=== PATIENT | female | born 1975 | race Caucasian/White ===

== ENCOUNTER 2017-03-07 23:18 | Emergency (ER) | payer MEDICARE, OTHER ==
[2017-03-07] MEDS ORDERED: diphenhydrAMINE 50 MG/ML 1 ML VIAL IVP STA (23:38)
[2017-03-07] MEDS ORDERED: FAMOTIDINE 20 MG/2 ML VIAL IV STA (23:38)
[2017-03-07] MEDS ORDERED: methylPREDNISolone SOD SUCCI 125 MG/2 ML VIAL IV STA (23:38)
[2017-03-08 00:01] LABS: Appearance,Urine Cloudy (Clear); Bacteria,Urine Rare /hpf; Bilirubin,Urine Negative (Negative); Glucose,Urine (UA) Negative (Negative); Ketones,Urine Negative (Negative); Leukocyte Esterase,Urine Moderate (Negative); Mucus,Urine Rare /hpf; Nitrite,Urine Negative (Negative); Particle Count 2995; Protein,Urine Negative (Negative); RBC,Urine 1 /hpf (0-5); Specific Gravity,Urine 1.017 (1.001-1.035); Squamous Epithelial Cell,Urine 4 /hpf (0-4); UA Billing (MACRO vs. MICRO) MICRO; Urobilinogen,Urine <2.0 mg/dL (<2.0); WBC,Urine 8 /hpf (0-5)
--- NOTE | 2017-03-08 00:21 | ED ---
Allergic Reaction HPI - General Chief complaint: Allergic Reaction Stated complaint: Allergic Reaction Time Seen by Provider: 03/07/17 23:33 Source: EMS, RN notes reviewed, old records reviewed Mode of arrival: EMS Limitations: no limitations - History of Present Illness Initial Comments: His is a 41-year-old feel presents emergency department chief complaint of hives. Patient was brought in via EMS. She reports that she broke out in hives after taking linzess pill. Patient states that she's taken Linzess starting this week. This first and she's had a reaction to it. Patient reports she has diffuse hives over her arms and legs. Denies any airway swelling or difficulty breathing. Patient states that she arrived in the EMS and they gave her 75mg Benadryl through an IV are ready.Patient denies any recent fever, chills, shortness of breath, chest pain, back pain, abdominal pain , nausea vomiting, numbness or tingling, dysuria or hematuria, constipation or diarrhea, headaches or visual changes, or any other current symptoms - Related Data Home Medications Medication Instructions Recorded Confirmed Albuterol Inhaler [Ventolin Hfa 1 - 2 puff INHALATION Q6HR PRN 07/08/15 07/08/15 Inhaler] busPIRone HCL [Buspar] 30 mg PO BID 07/08/15 07/08/15 clonazePAM [KlonoPIN] 0.25 mg PO QID PRN 07/08/15 07/08/15 Previous Rx's Medication Instructions Recorded Amoxicillin/Potassium Clav 1 each PO Q12HR #14 tab 07/08/15 [Augmentin 875-125 Tablet] predniSONE 50 mg PO DAILY #4 tab 07/08/15 EPINEPHrine (Auto Inject) [Epipen] 0.3 mg IM ONCE PRN #1 syringe 03/08/17 Famotidine [Pepcid] 20 mg PO BID #6 tablet 03/08/17 diphenhydrAMINE [Benadryl] 25 mg PO QID PRN #20 capsule 03/08/17 predniSONE 20 mg PO BID #6 tab 03/08/17 Allergies Allergy/AdvReac Type Severity Reaction Status Date / Time bee venom protein (honey bee) Allergy Anaphylaxis Verified 03/07/17 23:21 linaclotide [From Linzess] Allergy Rash/Hives Verified 03/07/17 23:21 Review of Systems ROS Statement: Those systems with pertinent positive or pertinent negative responses have been documented in the HPI. ROS Other: All systems not noted in ROS Statement are negative. Past Medical History Past Medical History: Asthma History of Any Multi-Drug Resistant Organisms: None Reported Past Surgical History: Adenoidectomy, Bladder Surgery, Orthopedic Surgery, Tonsillectomy, Tubal Ligation Past Psychological History: Anxiety, Depression Smoking Status: Current every day smoker Past Alcohol Use History: None Reported Past Drug Use History: None Reported General Exam - General Exam Comments Initial Comments: Is an 41-year-old female. No distress. Limitations: no limitations General appearance: alert, in no apparent distress Head exam: Present: atraumatic, normocephalic, normal inspection Eye exam: Present: normal appearance, PERRL, EOMI. Absent: scleral icterus, conjunctival injection, periorbital swelling ENT exam: Present: normal exam, mucous membranes moist Neck exam: Present: normal inspection. Absent: tenderness, meningismus, lymphadenopathy Respiratory exam: Present: normal lung sounds bilaterally. Absent: respiratory distress, wheezes, rales, rhonchi, stridor Cardiovascular Exam: Present: regular rate, normal rhythm, normal heart sounds. Absent: systolic murmur, diastolic murmur, rubs, gallop, clicks GI/Abdominal exam: Present: soft, normal bowel sounds. Absent: distended, tenderness, guarding, rebound, rigid Extremities exam: Present: normal inspection, full ROM, normal capillary refill. Absent: tenderness, pedal edema, joint swelling, calf tenderness Back exam: Present: normal inspection Neurological exam: Present: alert, oriented X3, CN II-XII intact Psychiatric exam: Present: normal affect, normal mood Skin exam: Present: warm, dry, intact, urticaria (Patient has diffuse urticaria over her thighs, arms and chest. No significant angioedema noted.). Absent: normal color, rash Course Vital Signs 03/07/17 03/08/17 23:21 00:49 Temperature 98 F 98.3 F Pulse Rate 65 75 Respiratory 16 18 Rate Blood Pressure 124/74 120/69 O2 Sat by Pulse 100 98 Oximetry Medical Decision Making - Medical Decision Making 41-year-old feel presenting to emergency Department with ALLERGIC reaction with hives over her arms legs and chest after taking her Linzess pill. She was started on Linzess this past week. First and she's had a reaction to it. Denies any difficulty breathing no airway swelling. Patient received 75 mg of Benadryl via EMS. Was given Solu-Medrol and Pepcid here. Patient is reevaluated and her hives are resolving. Patient also complains of some mild nausea. Given a Zofran starter pack. At this time patient will be discharged with prednisone and Pepcid and Benadryl. I also will write the patient for an epinephrine pen if she ever has any further ALLERGIC reactions. Discussed discontinuing linens us until following up with primary care provider. Discussed return to emergency department if any alarming signs or symptoms occur. Patient agrees to treatment plan will comply. Return parameters were discussed. - Lab Data Lab Results 03/07/17 Range/Units 23:50 Urine Color Yellow Urine Appearance Cloudy H (Clear) Urine pH 7.0 (5.0-8.0) Ur Specific [place] 1.017 (1.001-1.035) Urine Protein Negative (Negative) Urine Glucose (UA) Negative (Negative) Urine Ketones Negative (Negative) Urine Blood Negative (Negative) Urine Nitrite Negative (Negative) Urine Bilirubin Negative (Negative) Urine Urobilinogen <2.0 (<2.0) mg/dL Ur Leukocyte Esterase Moderate H (Negative) Urine RBC 1 (0-5) /hpf Urine WBC 8 H (0-5) /hpf Ur Squamous Epith Cells 4 (0-4) /hpf Urine Bacteria Rare H (None) /hpf Urine Mucus Rare H (None) /hpf Disposition Clinical Impression: Urticaria Disposition: HOME SELF-CARE Condition: Good Instructions: Urticaria (ED) Additional Instructions: Patient advised to take his prescriptions as prescribed. Fill the EpiPen always have it on hand in case he needed for an emergency. Return to the emergency department if any alarming signs or symptoms occur. Prescriptions: diphenhydrAMINE [Benadryl] 25 mg PO QID PRN #20 capsule PRN Reason: Itching EPINEPHrine (Auto Inject) [Epipen] 0.3 mg IM ONCE PRN #1 syringe PRN Reason: Anaphylaxis Famotidine [Pepcid] 20 mg PO BID #6 tablet predniSONE 20 mg PO BID #6 tab Referrals: Pennie Rabago III, MD [Primary Care Provider] - 1-2 days Time of Disposition: 00:31
[2017-03-08] MEDS ORDERED: ONDANSETRON 4 MG ODT STARTER PACK 2 TAB BTL PO STA (00:40)
[2017-03-08 00:50] VITALS: BP 120/69; PULSE 75; RESP 18; TEMP 98.3
== END 2017-03-08 00:50 | disposition home or self-care (01) ==
LOC: EC 23:18
DX: L50.9 Urticaria, unspecified (principal); R11.0 Nausea; F32.9 Major depressive disorder, single episode, unspecified; F41.9 Anxiety disorder, unspecified; F17.200 Nicotine dependence, unspecified, uncomplicated; Z79.899 Other long term (current) drug therapy; Z88.8 Allergy status to other drugs, medicaments and biological substances; Z91.030 Bee allergy status
CPT/HCPCS: 99284 ×2; 96374 ×2; 96375 ×2; 81001; 87086; J2930; S0119

== ENCOUNTER 2018-02-20 11:22 | Emergency (ER) | payer MEDICARE, OTHER ==
[2018-02-20 11:32] VITALS: RESP 18
[2018-02-20] MEDS ORDERED: ACET/COD 300 MG/30 MG STARTER PACK 6 TAB BTL PO STA (12:05)
[2018-02-20] MEDS ORDERED: KETOROLAC 60 MG/2 ML VIAL IM STA (12:05)
[2018-02-20] MEDS ORDERED: predniSONE 20 MG TAB PO STA (12:05)
[2018-02-20] MEDS ORDERED: Acetaminophen-Codeine 300-30mg TAB PO STA (12:05)
--- NOTE | 2018-02-20 12:43 | ED ---
General Adult HPI - General Chief complaint: Back Pain/Injury Stated complaint: hip & leg pain Time Seen by Provider: 02/20/18 11:34 Source: patient, RN notes reviewed, old records reviewed Mode of arrival: ambulatory Limitations: no limitations - History of Present Illness Initial comments: this is a 6-year-old female the ER for evaluation. Patient presents today for evaluation regards to back pain. Acute on chronic back pain history of sciatica. Patient has family doctor appointment this week with Dr. Zhang in the meantime currently with no medication. Patient denies any new injuries. No recent evaluation. No trauma. No loss of bowel or bladder neurological deficit. Back pain is right sided right buttocks down the right knee. No modifying factors at home - Related Data Home Medications Medication Instructions Recorded Confirmed Albuterol Inhaler [Ventolin Hfa 1 - 2 puff INHALATION Q6HR PRN 07/08/15 02/20/18 Inhaler] Acetaminophen [Tylenol Extra 500 mg PO Q6HR 02/20/18 02/20/18 Strength] Previous Rx's Medication Instructions Recorded EPINEPHrine (Auto Inject) [Epipen] 0.3 mg IM ONCE PRN #1 syringe 03/08/17 Naproxen [Naprosyn] 500 mg PO Q12HR PRN #30 tab 02/20/18 predniSONE 50 mg PO DAILY #5 tab 02/20/18 Allergies Allergy/AdvReac Type Severity Reaction Status Date / Time bee venom protein (honey bee) Allergy Anaphylaxis Verified 02/20/18 11:46 linaclotide [From Linzess] Allergy Rash/Hives Verified 02/20/18 11:46 Review of Systems ROS Statement: Those systems with pertinent positive or pertinent negative responses have been documented in the HPI. ROS Other: All systems not noted in ROS Statement are negative. Past Medical History Past Medical History: Asthma History of Any Multi-Drug Resistant Organisms: None Reported Past Surgical History: Adenoidectomy, Bladder Surgery, Orthopedic Surgery, Tonsillectomy, Tubal Ligation Past Psychological History: Anxiety, Depression Smoking Status: Current every day smoker Past Alcohol Use History: None Reported Past Drug Use History: None Reported General Exam - General Exam Comments Initial Comments: no neurological deficits or weakness noted Limitations: no limitations General appearance: alert, in no apparent distress Head exam: Present: atraumatic, normocephalic, normal inspection Eye exam: Present: normal appearance, PERRL, EOMI. Absent: scleral icterus, conjunctival injection, periorbital swelling ENT exam: Present: normal exam, mucous membranes moist Neck exam: Present: normal inspection. Absent: tenderness, meningismus, lymphadenopathy Respiratory exam: Present: normal lung sounds bilaterally. Absent: respiratory distress, wheezes, rales, rhonchi, stridor Cardiovascular Exam: Present: regular rate, normal rhythm, normal heart sounds. Absent: systolic murmur, diastolic murmur, rubs, gallop, clicks GI/Abdominal exam: Present: soft, normal bowel sounds. Absent: distended, tenderness, guarding, rebound, rigid Extremities exam: Present: normal inspection, full ROM, normal capillary refill. Absent: tenderness, pedal edema, joint swelling, calf tenderness Back exam: Present: normal inspection Neurological exam: Present: alert, oriented X3, CN II-XII intact Psychiatric exam: Present: normal affect, normal mood Skin exam: Present: warm, dry, intact, normal color. Absent: rash Course Vital Signs 02/20/18 11:28 Temperature 98.2 F Pulse Rate 55 L Respiratory 18 Rate Blood Pressure 136/83 O2 Sat by Pulse 98 Oximetry - Reevaluation(s) Reevaluation #1: 02/20/18 12:43 pain is significantly improved Medical Decision Making - Medical Decision Making 42-year-old female the ER for evaluation of acute on chronic back pain, sciatica. Patient will be given treatment here in the emergency room to be discharged home follow-up with primary care - Radiology Data Radiology results: report reviewed (x-ray LS-spine is negative), image reviewed Disposition Clinical Impression: Mechanical back pain, Sciatica Disposition: HOME SELF-CARE Condition: Good Instructions: Chronic Back Pain (ED), Acute Low Back Pain (ED) Prescriptions: Naproxen [Naprosyn] 500 mg PO Q12HR PRN #30 tab PRN Reason: Pain predniSONE 50 mg PO DAILY #5 tab Is patient prescribed a controlled substance at d/c from ED?: No Referrals: Agus Zhang MD [Primary Care Provider] - 1-2 days
--- NOTE | 2018-02-20 13:23 | XR ---
Lumbar spine HISTORY: Low back pain 3 views of lumbar spine No comparisons Lumbar vertebral bodies show preserved height and bone mineralization. Minimal retrolisthesis grade 1 L2-3. There is associated sclerosis and loss of disc height, vacuum phenomenon present L1-2, L2-3. S clerosis present in the posterior elements of the lower lumbar spine. Exam is somewhat limited techni lashawn. Slight spinal curvature is noted. May be a transitional vertebral body at the lumbosacral junc tion. IMPRESSION: Degenerative disc disease, facet arthropathy. Consider lumbar MRI, CT for better evaluati on.
[2018-02-20] MEDS ORDERED: DIAZEPAM 5 MG TAB PO STA (13:44)
[2018-02-20 14:07] VITALS: BP 140/89; PULSE 60; TEMP 98
== END 2018-02-20 14:05 | disposition home or self-care (01) ==
LOC: EC 11:22
DX: M54.40 Lumbago with sciatica, unspecified side (principal); J45.909 Unspecified asthma, uncomplicated; F17.200 Nicotine dependence, unspecified, uncomplicated; Z79.899 Other long term (current) drug therapy; Z88.8 Allergy status to other drugs, medicaments and biological substances; Z91.030 Bee allergy status
CPT/HCPCS: 72100; 99284; 96372; J1885; J7512

== ENCOUNTER 2018-03-06 13:14 | Emergency (ER) | payer MEDICARE, OTHER ==
[2018-03-06 13:30] VITALS: BP 120/75; RESP 18; TEMP 98.2
[2018-03-06] MEDS ORDERED: IPRATROPIUM-ALBUTEROL 3 ML NEB INHALATION STA (13:46)
--- NOTE | 2018-03-06 13:51 | ED ---
URI HPI - General Chief Complaint: Upper Respiratory Infection Stated Complaint: congestion, diff breathing Time Seen by Provider: 03/06/18 13:35 Source: patient, RN notes reviewed, old records reviewed Mode of arrival: ambulatory Limitations: no limitations - History of Present Illness Initial Comments: Patient is a 42-year-old female present stated chief complaint of cough congestion and respiratory symptoms for the past week. She's been taking some Mucinex medication without any relief. Patient states that she recently quit smoking 3 days ago. Patient states that she started Chantix. Patient states that she used to have an Advair inhaler and believes that she may need another one. She states that she's had a productive cough. She denies a specific fevers or chills. She denies any neck nausea or abdominal pain. - Related Data Home Medications Medication Instructions Recorded Confirmed Albuterol Inhaler [Ventolin Hfa 1 - 2 puff INHALATION Q6HR PRN 07/08/15 02/20/18 Inhaler] Acetaminophen [Tylenol Extra 500 mg PO Q6HR 02/20/18 02/20/18 Strength] Previous Rx's Medication Instructions Recorded EPINEPHrine (Auto Inject) [Epipen] 0.3 mg IM ONCE PRN #1 syringe 03/08/17 Naproxen [Naprosyn] 500 mg PO Q12HR PRN #30 tab 02/20/18 predniSONE 50 mg PO DAILY #5 tab 02/20/18 Albuterol Inhaler [Ventolin Hfa 1 - 2 puff INHALATION RT-Q6H PRN 03/06/18 Inhaler] #1 inhaler Azithromycin [Zithromax] 250 mg PO DIRECTED #6 tab 03/06/18 predniSONE 10 mg PO DAILY #15 tab 03/06/18 Allergies Allergy/AdvReac Type Severity Reaction Status Date / Time bee venom protein (honey bee) Allergy Anaphylaxis Verified 03/06/18 13:30 linaclotide [From Linzess] Allergy Rash/Hives Verified 03/06/18 13:30 Review of Systems ROS Statement: Those systems with pertinent positive or pertinent negative responses have been documented in the HPI. ROS Other: All systems not noted in ROS Statement are negative. Past Medical History Past Medical History: Asthma History of Any Multi-Drug Resistant Organisms: None Reported Past Surgical History: Adenoidectomy, Bladder Surgery, Orthopedic Surgery, Tonsillectomy, Tubal Ligation Past Psychological History: Anxiety, Depression Smoking Status: Current every day smoker Past Alcohol Use History: None Reported Past Drug Use History: None Reported General Exam - General Exam Comments Initial Comments: 42-year-old female. Alert and oriented. No significant distress. Limitations: no limitations General appearance: alert, in no apparent distress Head exam: Present: atraumatic, normocephalic, normal inspection Eye exam: Present: normal appearance, PERRL, EOMI. Absent: scleral icterus, conjunctival injection, periorbital swelling ENT exam: Present: normal exam, mucous membranes moist Neck exam: Present: normal inspection. Absent: tenderness, meningismus, lymphadenopathy Respiratory exam: Present: wheezes (Patient has wheezing over the left lung em.). Absent: normal lung sounds bilaterally, respiratory distress, rales, rhonchi, stridor Cardiovascular Exam: Present: regular rate, normal rhythm, normal heart sounds. Absent: systolic murmur, diastolic murmur, rubs, gallop, clicks GI/Abdominal exam: Present: soft, normal bowel sounds. Absent: distended, tenderness, guarding, rebound, rigid Back exam: Present: normal inspection Neurological exam: Present: alert, oriented X3, CN II-XII intact Psychiatric exam: Present: normal affect, normal mood Course Vital Signs 03/06/18 03/06/18 13:27 14:12 Temperature 98.2 F Pulse Rate 64 86 Respiratory 18 Rate Blood Pressure 120/75 O2 Sat by Pulse 97 Oximetry Medical Decision Making - Medical Decision Making 42-year-old female presents emergency department today with cough congestion and shortness of breath. He is well-appearing. Vital signs are stable. She appears in no acute distress. She did have some wheezing on exam. Patient at this time was given a DuoNeb breathing treatment. Patient was given DuoNeb treatment has improvement. Patient's chest x-rays are reviewed and negative for any acute process. This Patient with bronchitis, started on azithromycin and steroids. Patient will follow up with primary care physician. Return parameters were discussed. - Radiology Data Radiology results: report reviewed Chest x-rays negative for any acute cardiac vomiting process. Disposition Clinical Impression: Bronchitis Disposition: HOME SELF-CARE Condition: Good Instructions: Acute Bronchitis (ED) Additional Instructions: Patient has a follow-up with primary care provider. Take medication as prescribed. Return to emergency department if any alarming signs or symptoms occur. Prescriptions: Albuterol Inhaler [Ventolin Hfa Inhaler] 1 - 2 puff INHALATION RT-Q6H PRN #1 inhaler PRN Reason: Shortness Of Breath Azithromycin [Zithromax] 250 mg PO DIRECTED #6 tab predniSONE 10 mg PO DAILY #15 tab Is patient prescribed a controlled substance at d/c from ED?: No Referrals: Agus Zhang MD [Primary Care Provider] - 1-2 days Time of Disposition: 14:25
[2018-03-06] MEDS ORDERED: methylPREDNISolone SOD SUCCI 125 MG/2 ML VIAL IM ONE (13:52)
--- NOTE | 2018-03-06 14:07 | XR ---
EXAMINATION TYPE: XR chest 2V DATE OF EXAM: 03/06/2018 COMPARISON: 07/08/2015 TECHNIQUE: PA and lateral views submitted. HISTORY: Shortness of breath FINDINGS: The lungs are clear and there is no pneumothorax, pleural effusion, or focal pneumonia. Hypertrophic change of the vertebral column. IMPRESSION: 1. No acute process.
[2018-03-06 14:13] VITALS: PULSE 86
== END 2018-03-06 14:35 | disposition home or self-care (01) ==
LOC: EC 13:14
DX: J45.909 Unspecified asthma, uncomplicated (principal); F17.200 Nicotine dependence, unspecified, uncomplicated; Z98.51 Tubal ligation status; Z98.890 Other specified postprocedural states; Z79.899 Other long term (current) drug therapy; Z88.8 Allergy status to other drugs, medicaments and biological substances; Z91.030 Bee allergy status
CPT/HCPCS: 94640; 71046; 99285; 96372; J2930

== ENCOUNTER 2018-05-14 16:10 | Emergency (ER) | payer MEDICARE, OTHER ==
[2018-05-14 16:14] VITALS: RESP 16
--- NOTE | 2018-05-14 16:58 | XR ---
EXAMINATION TYPE: XR foot complete LT DATE OF EXAM: 05/14/2018 COMPARISON: NONE HISTORY: Pain TECHNIQUE: 3 views FINDINGS: There is a moderate plantar calcaneal spur. Metatarsals are intact. I see no fracture nor d islocation. There are no erosions. IMPRESSION: Calcaneal spurring. No fracture.
[2018-05-14] MEDS ORDERED: MORPHINE SULFATE 2 MG/ML SYRINGE IM STA (17:19)
--- NOTE | 2018-05-14 17:32 | ED ---
Upper Extremity HPI - General Chief Complaint: Extremity Injury, Upper Stated Complaint: Swollen foot Time Seen by Provider: 05/14/18 16:22 Source: patient Mode of arrival: wheelchair Limitations: no limitations - History of Present Illness Initial Comments: 42yo female with PMH of asthma presenting today for cc of left foot pain x 1 week. Pt states that she has had pain in the top of her left foot for the past week, denies any swelling or redness. She denies noting any injuries or fall. She states that when she moves her foot she can feel an audible pop. Pt did make an appointment with her poidatrist Dr. Bourne for tmrw however presented to the ER for pain mgmt. Pt denies taking pain medication prior to arrival. Triage read "swelling" however pt denies swelling on history taking. Pt denies any calf pain or swelling, recent surgery or immobilization, hx of cancer, bedridden, previous DVT, exogenous estrogen use. Pt states the pain increases with ambulation. Upon arrival pt is in wheelchair, she appears well- there are no signs of acute distress. Remainder of ROS (-), pt denies chest pain, dyspnea , hemoptysis, back pain, nausea, vomiting, diarrhea, abdominal pain, urgency, headache, visual changes, dizziness,fever, chills or any other complains. Pt VS within acceptable limits. - Related Data Home Medications Medication Instructions Recorded Confirmed Albuterol Inhaler [Ventolin Hfa 1 - 2 puff INHALATION Q6HR PRN 07/08/15 02/20/18 Inhaler] Acetaminophen [Tylenol Extra 500 mg PO Q6HR 02/20/18 02/20/18 Strength] Previous Rx's Medication Instructions Recorded EPINEPHrine (Auto Inject) [Epipen] 0.3 mg IM ONCE PRN #1 syringe 03/08/17 Naproxen [Naprosyn] 500 mg PO Q12HR PRN #30 tab 02/20/18 predniSONE 50 mg PO DAILY #5 tab 02/20/18 Albuterol Inhaler [Ventolin Hfa 1 - 2 puff INHALATION RT-Q6H PRN 03/06/18 Inhaler] #1 inhaler Azithromycin [Zithromax] 250 mg PO DIRECTED #6 tab 03/06/18 predniSONE 10 mg PO DAILY #15 tab 03/06/18 Allergies Allergy/AdvReac Type Severity Reaction Status Date / Time bee venom protein (honey bee) Allergy Anaphylaxis Verified 05/14/18 16:14 linaclotide [From Linzess] Allergy Rash/Hives Verified 05/14/18 16:14 Review of Systems ROS Statement: Those systems with pertinent positive or pertinent negative responses have been documented in the HPI. ROS Other: All systems not noted in ROS Statement are negative. Past Medical History Past Medical History: Asthma History of Any Multi-Drug Resistant Organisms: None Reported Past Surgical History: Adenoidectomy, Bladder Surgery, Orthopedic Surgery, Tonsillectomy, Tubal Ligation Past Psychological History: Anxiety, Depression Smoking Status: Current every day smoker Past Alcohol Use History: None Reported Past Drug Use History: None Reported General Exam - General Exam Comments Initial Comments: General: The patient is awake and alert, in no distress, and does not appear acutely ill. Eye: Pupils are equal, round and reactive to light, extra-ocular movements are intact. No nystagmus. There is normal conjunctiva bilaterally. No signs of icterus. Ears, nose, mouth and throat: There are moist mucous membranes and no oral lesions. Neck: The neck is supple, there is no tenderness or JVD. Cardiovascular: There is a regular rate and rhythm. No murmur, rub or gallop is appreciated. Respiratory: Lungs are clear to auscultation, respirations are non-labored, breath sounds are equal. No wheezes, stridor, rales, or rhonchi. Musculoskeletal: Upon inspection of the foot no eythema, bruisng, swelling or deformity noted. Left foot appears equal in comparison with the right foot. No calf swelling, equal b/l. Pt tender to palpation along the anterior lateral asepct of left foot. Normal ROM of the digits of the feet and ankles b/l, no tenderness. Strength 5/5. Sensation intact of the LE and feet equally b/l. DP pulses equal bilaterally 2+. Capillary refill < 2seconds. Neurological: A&O x 3. CN II-XII intact, There are no obvious motor or sensory deficits. Coordination appears grossly intact. Speech is normal. Skin: Skin is warm and dry and no rashes or lesions are noted. No LE edema, (- ) Homans, no pain to palpation along LE deep venous system. Psychiatric: Cooperative, appropriate mood & affect, normal judgment. Limitations: no limitations Course Vital Signs 05/14/18 05/14/18 16:12 18:00 Temperature 98 F 98.2 F Pulse Rate 67 60 Respiratory 16 16 Rate Blood Pressure 138/69 134/77 O2 Sat by Pulse 99 98 Oximetry Medical Decision Making - Medical Decision Making No clinical evidence of hx concerning for DVT. Wells score 0. Pt neurovascularly intact. XR (-) for acute fx or dislocation, Heel spur noted. Pt has appointment with doorperson tmrw. At this time I do feel pt is stable for discharge with podiatry f/u. Pt states she is able to ambulate with cane, denies prescription for crutches. Pt given pain medication during visits. Instructed to use ibuprofen and tylenol for pain mgmt upon discharge. Case discussed with Dr. Allison who agreed with impression and plan. Pt discharged in stable condition with f/u as discussed and return for any new, worsening or persistent symptoms. Pt is agreeable with plan and discharge. Denies questions at this time. Disposition Clinical Impression: Left foot pain Disposition: HOME SELF-CARE Condition: Good Instructions: R.I.C.E. Treatment (ED), Metatarsalgia (DC) Additional Instructions: Please use medication as discussed. Please follow-up with her doorperson as scheduled for tomorrow. Please follow-up with family physician in next 2-3 days. Please return to emergency room if the symptoms increase or worsen or for any other concerns, such a foot swelling, redness, fever, chills, calf pain or calf swelling . Is patient prescribed a controlled substance at d/c from ED?: No Referrals: Agus Zhang MD [Primary Care Provider] - 1-2 days Time of Disposition: 17:31
[2018-05-14 18:01] VITALS: BP 134/77; PULSE 60; TEMP 98.2
== END 2018-05-14 18:00 | disposition home or self-care (01) ==
LOC: EC 16:10
DX: M79.672 Pain in left foot (principal); J45.909 Unspecified asthma, uncomplicated; F17.200 Nicotine dependence, unspecified, uncomplicated; Z88.8 Allergy status to other drugs, medicaments and biological substances; Z91.018 Allergy to other foods; Z79.891 Long term (current) use of opiate analgesic
CPT/HCPCS: 73630; 99283; 96372; J2270

== ENCOUNTER 2019-11-14 08:46 | Day surgery (SDC) | payer MEDICARE, OTHER ==
[2019-11-12 11:56] VITALS: BMI 62.6
[~2019-11-14 08:46] MED LIST: LACTATED RINGERS 1,000 ML IV SCH; LIDOCAINE 1% (10MG/ML) FOR IV START INTRADERMA PRN
[2019-11-14 09:49] VITALS: TEMP 97.3
--- NOTE | 2019-11-14 09:55 | P.GSHP ---
History of Present Illness H&P Date: 11/14/19 Chief Complaint: Constipation, diarrhea, irritable bowel syndrome This a 43-year-old female who presents today for colonoscopy. Patient morbidly obese. She has a BMI of 63. Patient's had complaints of intermittent diarrhea constipation. She didn't have irritable bowel syndrome. She presents today for colonoscopy. Past Medical History Past Medical History: Asthma, GERD/Reflux, Hypertension Additional Past Medical History / Comment(s): hx migraines, hx seizure-last one 20 yrs ago, IBS, constipation, History of Any Multi-Drug Resistant Organisms: None Reported Past Surgical History: Adenoidectomy, Bladder Surgery, Orthopedic Surgery, Tonsillectomy, Tubal Ligation Additional Past Surgical History / Comment(s): bladder sling, two ulnar nerve decompressions, rt ankle surgery to remove a bone, cyst removed from rt axilla Past Anesthesia/Blood Transfusion Reactions: Previous Problems w/ Anesthesia, M otion Sickness Additional Past Anesthesia/Blood Transfusion Reaction / Comment(s): needed blood patch Smoking Status: Current every day smoker - Past Family History Father Family Medical History: Cancer Medications and Allergies Home Medications Medication Instructions Recorded Confirmed Type Albuterol Inhaler (Mhu) [Ventolin 1 - 2 puff INHALATION RT-Q6H PRN 03/06/18 11/12/19 Rx Hfa Inhaler (Mhu)] #1 inhaler Budesonide-Formot 160-4.5 Mcg 2 puff INHALATION BID 11/12/19 11/12/19 History [Symbicort 160-4.5 Mcg Inhaler] Dicyclomine [Bentyl] 10 mg PO TID 11/12/19 11/14/19 History Naproxen Sodium [Aleve] 220 mg PO HS 11/12/19 11/12/19 History diphenhydrAMINE [Benadryl] 25 mg PO HS PRN 11/12/19 11/14/19 History Allergies Allergy/AdvReac Type Severity Reaction Status Date / Time bee venom protein (honey bee) Allergy Anaphylaxis Verified 11/14/19 09:46 linaclotide [From Linzess] Allergy Rash/Hives Verified 11/14/19 09:46 Surgical - Exam - General well developed, well nourished, no distress - Eyes PERRL - ENT normal pinna - Neck no masses - Respiratory normal expansion - Cardiovascular Rhythm: regular - Abdomen Abdomen: soft, non tender Assessment and Plan Assessment: Diarrhea, passed patient. We'll perform colonoscopy.
[2019-11-14] MEDS ORDERED: MIDAZOLAM 2 MG/2 ML VIAL ONE (09:59)
[2019-11-14] MEDS ORDERED: fentaNYL (PF) 50 MCG/ML 2 ML AMP ONE (09:59)
[2019-11-14] MEDS ORDERED: PROPOFOL 10 MG/ML 20 ML VIAL IV ONE (09:59)
--- NOTE | 2019-11-14 10:11 | P.OP ---
Date of Procedure: 11/14/19 Preoperative Diagnosis: Abdominal pain Diarrhea Constipation Postoperative Diagnosis: Normal colonoscopy Procedure(s) Performed: Colonoscopy Anesthesia: MAC Surgeon: Robert Grace Pathology: none sent Condition: stable Disposition: PACU Description of Procedure: PROCEDURE: The patient was placed on the endoscopy table in the lateral position. Digital rectal examination was performed which revealed no abnormalities. s. Flexible colonoscope was then placed in the patient's anus and passed throughout the entire colon. The ileocecal valve was visualized. The cecum, ascending, transverse, descending and sigmoid colon were normal. The rectum was normal as well. There were no masses, polyps or diverticula noted in the entire colon. SUMMARY OF FINDINGS: Normal colonoscopy.
[2019-11-14 10:36] VITALS: BP 119/83; PULSE 53; RESP 16
== END 2019-11-14 10:53 | disposition home or self-care (01) ==
LOC: ORWHC2ENDO 08:46
PROVIDERS: ATTEND Surgery
DX: K58.0 Irritable bowel syndrome with diarrhea (principal); K59.00 Constipation, unspecified; J45.909 Unspecified asthma, uncomplicated; K21.9 Gastro-esophageal reflux disease without esophagitis; I10 Essential (primary) hypertension; F31.9 Bipolar disorder, unspecified; F60.3 Borderline personality disorder; E66.01 Morbid (severe) obesity due to excess calories; Z68.44 Body mass index [BMI] 60.0-69.9, adult; R26.9 Unspecified abnormalities of gait and mobility; M19.90 Unspecified osteoarthritis, unspecified site; R56.9 Unspecified convulsions; G43.909 Migraine, unspecified, not intractable, without status migrainosus; Z98.890 Other specified postprocedural states; F17.200 Nicotine dependence, unspecified, uncomplicated; F41.9 Anxiety disorder, unspecified; Z80.9 Family history of malignant neoplasm, unspecified; Z98.51 Tubal ligation status; M54.30 Sciatica, unspecified side; Z82.0 Family history of epilepsy and other diseases of the nervous system; Z80.0 Family history of malignant neoplasm of digestive organs; Z83.3 Family history of diabetes mellitus; Z82.3 Family history of stroke; Z79.51 Long term (current) use of inhaled steroids; Z79.1 Long term (current) use of non-steroidal anti-inflammatories (NSAID); Z79.899 Other long term (current) drug therapy; Z82.49 Family history of ischemic heart disease and other diseases of the circulatory system; Z88.8 Allergy status to other drugs, medicaments and biological substances; Z91.030 Bee allergy status
CPT/HCPCS: 81025; 45378; J2250; J3010; J2704

== ENCOUNTER 2020-03-11 13:08 | Emergency (ER) | payer MEDICARE, OTHER ==
[2020-03-11 13:24] VITALS: BP 145/90; PULSE 60; RESP 17; TEMP 98.4
--- NOTE | 2020-03-11 14:22 | XR ---
EXAMINATION TYPE: XR Hip LT and AP Pelvis DATE OF EXAM: 03/11/2020 COMPARISON: None HISTORY: Pain after fall TECHNIQUE: A single AP view of the pelvis is obtained. Two views of the left hip are obtained. FINDINGS: There is no acute fracture/dislocation evident in the pelvis. The hip and sacroiliac join ts appear symmetric and unremarkable. The overlying soft tissue appears unremarkable. Two views of left hip show no acute fracture or dislocation. No focal lytic or sclerotic lesion seen in the proximal femur. The overlying soft tissue is unremarkable. IMPRESSION: There is no acute fracture or dislocation in the pelvis or left hip.
--- NOTE | 2020-03-11 14:25 | XR ---
EXAMINATION TYPE: XR lumbar spine 2 or 3V DATE OF EXAM: 03/11/2020 CLINICAL HISTORY: Pain after fall TECHNIQUE: Frontal and lateral images of the lumbar spine are obtained. COMPARISON: Lumbar radiograph 02/20/2018 FINDINGS: There are 5 lumbar type vertebral bodies identified. The lumbar spine shows satisfactory alignment without evidence of acute fracture or dislocation. Vertebral body heights are normal. There is redemonstrated multilevel marked degenerative disc disease with osteophytic spurring, sclerotic e ndplate changes, and vacuum disc phenomenon. Minimal grade 1 retrolisthesis of L2 on L3 redemonstrate d. Facet arthropathy. The overlying soft tissue appears unremarkable. IMPRESSION: No acute fracture or dislocation is seen in the lumbar spine.
--- NOTE | 2020-03-11 14:27 | XR ---
EXAMINATION TYPE: XR knee complete LT DATE OF EXAM: 03/11/2020 CLINICAL HISTORY: Pain after fall TECHNIQUE: Three views of the left knee are obtained. COMPARISON: None. FINDINGS: There is no acute fracture/dislocation evident in left knee. The tri-compartment joint sp aces demonstrate severe degenerative spurring of the patellofemoral and medial compartments and mild spurring of the lateral compartment. The overlying soft tissue appears unremarkable. IMPRESSION: There is no acute fracture or dislocation in the left knee.
[2020-03-11] MEDS ORDERED: HYDROcodone/APAP 5-325MG 1 EACH TAB PO STA (14:35)
--- NOTE | 2020-03-11 14:40 | ED ---
General Adult HPI - General Chief complaint: Fall Stated complaint: FALL/KNEE&HIP INJURY Time Seen by Provider: 03/11/20 13:43 Source: patient, RN notes reviewed, old records reviewed Mode of arrival: ambulatory Limitations: no limitations - History of Present Illness Initial comments: 24-year-old female presenting status post fall. Patient had recently raised her bed onto castration and had fallen while getting out of bed onto her left knee and left hip. Patient came through ambulatory triage. She has been able to walk on this although there is some pain in the hip and knee. She denies any bowel or bladder dysfunction. Denies head or neck trauma. Denies anticoagulation. Denies abdominal pain or chest pain. - Related Data Home Medications Medication Instructions Recorded Confirmed Budesonide-Formot 160-4.5 Mcg 2 puff INHALATION BID 11/12/19 11/12/19 [Symbicort 160-4.5 Mcg Inhaler] Dicyclomine [Bentyl] 10 mg PO TID 11/12/19 11/14/19 Naproxen Sodium [Aleve] 220 mg PO HS 11/12/19 11/12/19 diphenhydrAMINE [Benadryl] 25 mg PO HS PRN 11/12/19 11/14/19 Previous Rx's Medication Instructions Recorded Albuterol Inhaler (Mhu) [Ventolin 1 - 2 puff INHALATION RT-Q6H PRN 03/06/18 Hfa Inhaler (Mhu)] #1 inhaler HYDROcodone/APAP 5-325MG [[place] 1 tab PO Q6HR PRN #12 tab 03/11/20 5-325] Allergies Allergy/AdvReac Type Severity Reaction Status Date / Time bee venom protein (honey bee) Allergy Anaphylaxis Verified 11/14/19 09:46 codeine Allergy Nausea & Verified 03/11/20 13:24 Vomiting linaclotide [From Linzess] Allergy Rash/Hives Verified 11/14/19 09:46 Review of Systems ROS Statement: Those systems with pertinent positive or pertinent negative responses have been documented in the HPI. ROS Other: All systems not noted in ROS Statement are negative. Past Medical History Past Medical History: Asthma, GERD/Reflux, Hypertension Additional Past Medical History / Comment(s): hx migraines, hx seizure-last one 20 yrs ago, IBS, constipation, History of Any Multi-Drug Resistant Organisms: None Reported Past Surgical History: Adenoidectomy, Bladder Surgery, Orthopedic Surgery, Tonsillectomy, Tubal Ligation Additional Past Surgical History / Comment(s): bladder sling, two ulnar nerve decompressions, rt ankle surgery to remove a bone, cyst removed from rt axilla Past Anesthesia/Blood Transfusion Reactions: Previous Problems w/ Anesthesia, Motion Sickness Additional Past Anesthesia/Blood Transfusion Reaction / Comment(s): needed blood patch Past Psychological History: Anxiety, Depression Smoking Status: Current every day smoker Past Alcohol Use History: None Reported Past Drug Use History: None Reported - Past Family History Father Family Medical History: Cancer General Exam Limitations: no limitations General appearance: alert, in no apparent distress Head exam: Present: atraumatic, normocephalic Eye exam: Present: normal appearance, PERRL ENT exam: Present: normal exam Neck exam: Present: normal inspection. Absent: tenderness, meningismus Respiratory exam: Present: normal lung sounds bilaterally. Absent: respiratory distress Cardiovascular Exam: Present: regular rate, normal rhythm GI/Abdominal exam: Present: soft. Absent: distended, tenderness, guarding Extremities exam: Present: other (Range of motion at the knee within normal limits, there is some anterior tenderness to palpation, no ecchymosis, no hematoma, normal alignment, no gross deformity. There is some pain with range of motion of the left hip.) Back exam: Present: paraspinal tenderness (left), other (No step off, no external signs of trauma) Neurological exam: Present: alert, oriented X3, normal gait Psychiatric exam: Present: normal affect, normal mood Skin exam: Present: warm, dry, intact Course Vital Signs 03/11/20 13:19 Temperature 98.4 F Pulse Rate 60 Respiratory 17 Rate Blood Pressure 145/90 O2 Sat by Pulse 98 Oximetry Medical Decision Making - Medical Decision Making 44-year-old female presenting status post fall, patient has some left paraspinal pain and pain over the left hip with minimal pain with range of motion of the left hip. There is no gross deformity. X-rays are performed of the lumbar spine, left hip and pelvis as well as a left knee. There is no acute bony abnormality. There is some joint space narrowing and osteoarthritis of the lumbar vertebral disks. Patient is ambulatory in the emergency department, able to bear weight. Disposition Clinical Impression: Fall, Contusion, knee, Low back strain Disposition: HOME SELF-CARE Condition: Fair Instructions (If sedation given, give patient instructions): Fall Prevention (ED), Low Back Strain (ED), Knee Pain (ED) Prescriptions: HYDROcodone/APAP 5-325MG [[place] 5-325] 1 tab PO Q6HR PRN #12 tab PRN Reason: Pain Is patient prescribed a controlled substance at d/c from ED?: No Referrals: None,Stated [Primary Care Provider] - 1-2 days Mckinley Ramirez MD [STAFF PHYSICIAN] - 1-2 days Geraldo Crump MD [REFERRING] - 1-2 days Shira Hines MD [STAFF PHYSICIAN] - 1-2 days Time of Disposition: 14:39
== END 2020-03-11 14:49 | disposition home or self-care (01) ==
LOC: EC 13:08
DX: S80.02XA Contusion of left knee, initial encounter (principal); S39.012A Strain of muscle, fascia and tendon of lower back, initial encounter; M48.061 Spinal stenosis, lumbar region without neurogenic claudication; M47.816 Spondylosis without myelopathy or radiculopathy, lumbar region; M25.552 Pain in left hip; F17.200 Nicotine dependence, unspecified, uncomplicated; J45.909 Unspecified asthma, uncomplicated; K58.9 Irritable bowel syndrome, unspecified; K21.9 Gastro-esophageal reflux disease without esophagitis; Z79.899 Other long term (current) drug therapy; Z91.030 Bee allergy status; Z88.5 Allergy status to narcotic agent; Z88.8 Allergy status to other drugs, medicaments and biological substances; Z79.51 Long term (current) use of inhaled steroids; Z98.890 Other specified postprocedural states; W06.XXXA Fall from bed, initial encounter; Y93.89 Activity, other specified; Y92.003 Bedroom of unspecified non-institutional (private) residence as the place of occurrence of the external cause
CPT/HCPCS: 72100; 73502; 99284

== ENCOUNTER → 2020-07-10 | Outpatient (CLI) | payer MEDICARE, OTHER ==
--- NOTE | 2020-07-10 10:23 | XR ---
EXAMINATION TYPE: XR chest 2V DATE OF EXAM: 07/10/2020 COMPARISON: NONE HISTORY: Chest pain TECHNIQUE: Frontal and lateral views of the chest are obtained. FINDINGS: There is no focal air space opacity. No evidence for pneumothorax. No pleural effusion. The cardiac silhouette size is within normal limits. The osseous structures are grossly intact. IMPRESSION: 1. No acute cardiopulmonary process.
== END | disposition home or self-care (01) ==
LOC: RADXRMAIN 09:11
PROVIDERS: ATTEND Family Medicine
DX: J45.40 Moderate persistent asthma, uncomplicated (principal)
CPT/HCPCS: 71046

== ENCOUNTER → 2020-12-18 | Outpatient (CLI) | payer MEDICARE, OTHER ==
--- NOTE | 2020-12-24 11:16 | MM ---
Reason for exam: screening (asymptomatic). Baseline mammogram. Physical Findings: Nurse did not find any significant physical abnormalities on exam. MG 3D Screening Mammo W/Cad Bilateral CC and MLO view(s) were taken. There are scattered fibroglandular densities. There is no discrete abnormality. ASSESSMENT: Negative, BI-RAD 1 RECOMMENDATION: Routine screening mammogram of both breasts in 1 year.
== END | disposition home or self-care (01) ==
LOC: RADMAMWWP 13:31
PROVIDERS: ATTEND Family Medicine
DX: Z12.31 Encounter for screening mammogram for malignant neoplasm of breast (principal)
CPT/HCPCS: 77063; 77067

== ENCOUNTER → 2021-03-17 | Outpatient (CLI) | payer MEDICARE, OTHER ==
[2021-03-17 15:27] VITALS: BP 159/86; PULSE 60; RESP 18; TEMP 98.1; BMI 65.8
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
[2021-03-17 16:54] LABS: HCT 45.3 % (34.0-46.0); HGB 14.9 gm/dL (11.4-16.0); MCH 28.3 pg (25.0-35.0); MCHC 32.9 g/dL (31.0-37.0); MCV 85.9 fL (80.0-100.0); Mean Platelet Volume 7.6; Platelet Count 311 k/uL (150-450); RBC 5.28 m/uL (3.80-5.40); RDW 14.4 % (11.5-15.5); WBC 11.7 k/uL (3.8-10.6)
[2021-03-17 18:30] LABS: INR 0.9 (<1.2); Partial Thromboplastin Time 26.8 sec (22.0-30.0); Prothrombin Time 10.2 sec (9.0-12.0)
[2021-03-18 05:42] LABS: Folate, Serum 8.7 ng/mL (4.40-31.00)
[2021-03-18 07:22] LABS: Magnesium 2.2 mg/dL (1.5-2.4); Phosphorus 4.1 mg/dL (2.4-5.1)
[2021-03-18 13:18] LABS: Ferritin 75.6 ng/mL (10.0-291.0)
[2021-03-18 13:54] LABS: % Iron Saturation 11.19 (12.00-45.00); African American GFR (CKD) 102.8 (60.0-200.0); Albumin 4.5 g/dL (3.8-4.9); Albumin/Globulin Ratio 1.59 (1.60-3.17); Anion Gap 28.2 mmol/L (4.00-12.00); BUN/Creat Ratio 17.98 Ratio (12.00-20.00); Blood Urea Nitrogen 14.6 mg/dL (9.0-27.0); Calcium 9.9 mg/dL (8.7-10.3); Chol/HDL Ratio 3.26 Ratio; Globulin 2.9 g/dL (1.6-3.3); HDL Cholesterol 55.9 mg/dL (40.00-60.00); LDL Cholesterol,Calculated 95.6 mg/dL (0.0-131.0); Non-African American GFR(CKD) 88.7 (60.0-200.0); Potassium 4.9 mmol/L (3.5-5.5); Total Bilirubin 0.3 mg/dL (0.30-1.20); Total Protein 7.4 g/dL (6.2-8.2); VLDL Calculation 20.6 mg/dL (5.00-40.00)
[2021-03-19 06:19] LABS: Vitamin A 44 ug/dL (38-106)
[2021-03-19 06:28] LABS: Vit B1(Thiamine) 89 ug/L (38-122)
[2021-03-19 15:12] LABS: Anabasine Urine 7.8 ng/mL (<2.0)
== END ==
LOC: BARWHC3 14:52
PROVIDERS: ATTEND Surgery Plastic and Reconstructive Surgery
DX: E66.01 Morbid (severe) obesity due to excess calories (principal); E89.1 Postprocedural hypoinsulinemia; D50.8 Other iron deficiency anemias; E44.0 Moderate protein-calorie malnutrition; E55.9 Vitamin D deficiency, unspecified; K74.1 Hepatic sclerosis; N19 Unspecified kidney failure; K50.90 Crohn's disease, unspecified, without complications; J45.909 Unspecified asthma, uncomplicated; K21.9 Gastro-esophageal reflux disease without esophagitis; I10 Essential (primary) hypertension; F41.9 Anxiety disorder, unspecified; F32.9 Major depressive disorder, single episode, unspecified; F17.210 Nicotine dependence, cigarettes, uncomplicated; Z71.51 Drug abuse counseling and surveillance of drug abuser; Z68.44 Body mass index [BMI] 60.0-69.9, adult; Z91.030 Bee allergy status; Z88.5 Allergy status to narcotic agent; Z88.8 Allergy status to other drugs, medicaments and biological substances
CPT/HCPCS: 84255; 84425; 80061; 80053; 82607; 82728; 82525; 82746; 83540; 83550; 83735; 84100; 84443; 84590; 85027; 85610; 85730; 82306; 83970; 83036; 80307; 93005; G0480; G0482; G0463; 80323; 84630; 99203

== ENCOUNTER → 2021-04-26 | Outpatient (CLI) | payer MEDICARE, OTHER ==
--- NOTE | 2021-04-26 10:43 | US ---
EXAMINATION TYPE: US gallbladder DATE OF EXAM: 04/26/2021 COMPARISON: NONE CLINICAL HISTORY: R10.11 RUQ ABD PAIN. RUQ pain with nausea for the past few years EXAM MEASUREMENTS: Liver Length: 18.6 cm Gallbladder Wall: 0.2 cm CBD: 0.4 cm Right Kidney: 12.4 x 5.3 x 5.5 cm Pancreas: Tail obscured by overlying bowel gas Liver: Increased attenuation Gallbladder: Stone seen in neck, 2.0 x 2.0 x 1.1 cm Evidence for sonographic Dsouza's sign: No CBD: wnl Right Kidney: No hydronephrosis or masses seen IMPRESSION: Gallbladder calculus as noted.
== END | disposition home or self-care (01) ==
LOC: RADUSWWP 09:51
PROVIDERS: ATTEND Surgery Plastic and Reconstructive Surgery
DX: K80.20 Calculus of gallbladder without cholecystitis without obstruction (principal)
CPT/HCPCS: 76705

== ENCOUNTER 2021-07-12 07:25 | Day surgery (SDC) | payer MEDICARE, OTHER ==
[2021-07-09 09:51] VITALS: BMI 64.2
[~2021-07-12 07:25] MED LIST changes: +DEXAMETHASONE SOD PHOSPHATE 4 MG/ML 1 ML VIAL IV ONE; -LIDOCAINE 1% (10MG/ML) FOR IV START INTRADERMA PRN; +MIDAZOLAM 2 MG/2 ML VIAL IV PRN; +ONDANSETRON 4 MG/2 ML VIAL IVP ONE; +SCOPOLAMINE 1.5MG/72HR PATCH TRANSDERM ONE; +ceFAZolin 3 GM in SODIUM CHLORIDE 0.9% 100 ML IVPB PRN; +fentaNYL (PF) 50 MCG/ML 2 ML AMP IV PRN
--- NOTE | 2021-07-12 07:45 | P.GSHP ---
History of Present Illness H&P Date: 07/12/21 CHIEF COMPLAINT: Cholecystitis HISTORY OF PRESENT ILLNESS: The patient is a 45-year-old female who presents with history of epigastric including right upper quadrant abdominal pain. She underwent diagnostic studies for her gallbladder. Separately her clinical picture was consistent with cholecystitis. Now she presents for surgical intervention. PAST MEDICAL HISTORY: Please see list PAST SURGICAL HISTORY: Please see list MEDICATIONS: Please see list ALLERGIES: Please see list SOCIAL HISTORY: Please see list FAMILY HISTORY: Please see list REVIEW OF ORGAN SYSTEMS: CONSTITUTIONAL: No reports of fevers or chills. Morbid obesity, BMI 64.2. HEENT: Denies any troubles with the vision or hearing. ENDOCRINE: No reports of hypothyroidism. No diabetes. RESPIRATORY: No recent pneumonias. Has asthma. CARDIOVASCULAR: Denies chest pain or palpitations GI: No blood in stools or constipation. Elevated liver enzymes. MUSCULOSKELETAL: Has occasional joint pain including back pain. NEURO: No seizure disorders or headaches. No recent stroke. PSYCH: No suicidal ideation. Has depressive disorder. GENITOURINARY: No active blood in urine. No urinary hesitancy. HEMATOLOGIC: No personal or family history of DVTs or pulmonary emboli. SKIN: No skin cancer. PHYSICAL EXAM: VITAL SIGNS: Afebrile vital signs stable GENERAL: Well-developed pleasant in no acute distress. HEENT: No scleral icterus. Extraocular movements grossly intact. Moist buccal mucosa. NECK: Supple without lymphadenopathy. CHEST: Unlabored respirations. Equal bilateral excursions. CARDIOVASCULAR: Regular rate regular rhythm rhythm. Distal 2+ pulses. ABDOMEN: Soft, nondistended. Tender along the epigastrium and right upper quadrant. MUSCULOSKELETAL: No clubbing, cyanosis, or edema. NEURO: Cranial nerves II to XII within normal limits. No focal or lateralizing signs. PSYCH: Alert and oriented to person, place and time. SKIN: Well-perfused good skin turgor. ASSESSMENT: 1. Epigastric and right upper quadrant abdominal pain 2. Chronic cholecystitis 3. Symptomatic gallstones. 4. Morbid obesity due to excess calories, BMI 64.2 5. Elevated liver enzymes. PLAN: 1. Will need a robotic cholecystectomy possible open. Benefits and risks were described. 2. Heparin for DVT prophylaxis 5000 units. 3. Antibiotic prophylaxis. 4. Patient elevated risk due to morbid obesity and 64.2 5. NSQIP criteria reviewed patient is above average risk for serious complications, any complications, readmission, surgical site infection Past Medical History Past Medical History: Asthma, GERD/Reflux, Hypertension, Osteoarthritis (OA), Seizure Disorder Additional Past Medical History / Comment(s): hx migraines, hx seizure-last one 20 yrs ago, IBS, constipation, used to take BP med years ago History of Any Multi-Drug Resistant Organisms: None Reported Past Surgical History: Adenoidectomy, Bladder Surgery, Orthopedic Surgery, Tonsillectomy, Tubal Ligation Additional Past Surgical History / Comment(s): bladder sling, two ulnar left wrist & elbow nerve decompressions, rt ankle surgery , cyst removed from rt axilla Past Anesthesia/Blood Transfusion Reactions: Previous Problems w/ Anesthesia, Motion Sickness Additional Past Anesthesia/Blood Transfusion Reaction / Comment(s): needed blood patch EPIDURAL- Smoking Status: Current every day smoker - Past Family History Father Family Medical History: Cancer Additional Family Medical History / Comment(s): PANCREATIC CANER Medications and Allergies Home Medications Medication Instructions Recorded Confirmed Type Albuterol Inhaler (Mhu) [Ventolin 1 - 2 puff INHALATION RT-Q6H PRN 03/06/18 07/09/21 Rx Hfa Inhaler (Mhu)] #1 inhaler Budesonide/Formoterol Fumarate 2 puff INHALATION BID 03/17/21 07/09/21 History [Symbicort 80-4.5 Mcg Inhaler] Cholecalciferol (Vitamin D3) 125 mcg PO DAILY 03/17/21 07/09/21 History [Vitamin D3 (125 MCG = 5,000 IU)] Sertraline [Zoloft] 100 mg PO DAILY 03/17/21 07/09/21 History busPIRone HCL [Buspar] 7.5 mg PO BID 03/17/21 07/09/21 History Cyanocobalamin (Vitamin B-12) 1,000 mcg PO DAILY 06/03/21 07/09/21 History [Vitamin B-12] Allergies Allergy/AdvReac Type Severity Reaction Status Date / Time bee venom protein (honey bee) Allergy Anaphylaxis Verified 07/09/21 08:25 codeine Allergy Nausea & Verified 07/09/21 08:25 Vomiting linaclotide [From Linzess] Allergy Rash/Hives,SWELLING Verified 07/09/21 08:25 OF THROAT,SOB
[2021-07-12] MEDS ORDERED: GABAPENTIN 300 MG CAP PO PRN (07:48)
[2021-07-12] MEDS ORDERED: INDOCYANINE GREEN 25 MG VIAL IV STA (07:48)
[2021-07-12] MEDS ORDERED: MELOXICAM 7.5 MG TAB PO PRN (07:48)
[2021-07-12] MEDS ORDERED: ACETAMINOPHEN TAB 500 MG TAB PO PRN (07:48)
[2021-07-12] MEDS ORDERED: HEPARIN SODIUM,PORCINE/PF 5,000 UNIT/0.5 ML SYRINGE SQ PRN (07:55)
[2021-07-12 08:12] VITALS: TEMP 97.8
[2021-07-12] MEDS ORDERED: MIDAZOLAM 2 MG/2 ML VIAL ONE (08:50)
[2021-07-12] MEDS ORDERED: SUCCINYLCHOLINE CHLORIDE VIAL 200 MG/10 ML VIAL IV ONE (08:50)
[2021-07-12] MEDS ORDERED: NEOSTIGMINE 1 MG/ML 10 ML VIAL ONE (08:50)
[2021-07-12] MEDS ORDERED: KETOROLAC 15 MG/ML 1 ML VIAL ONE ×2 (08:50)
[2021-07-12] MEDS ORDERED: PROPOFOL 10 MG/ML 20 ML VIAL IV ONE (08:50)
[2021-07-12] MEDS ORDERED: GLYCOPYRROLATE 0.2 MG/ML 2 ML VIAL ONE (08:50)
[2021-07-12] MEDS ORDERED: LIDOCAINE 1% INJ 10MG/ML (20 ML MDV) ONE (08:50)
[2021-07-12] MEDS ORDERED: ROCURONIUM 10 MG/ML (5 ML VIAL) IV ONE (08:50)
[2021-07-12] MEDS ORDERED: INDOCYANINE GREEN 25 MG VIAL IV ONE (08:50)
[2021-07-12] MEDS ORDERED: ALBUTEROL HFA INHALER INHALATION ONE (08:50)
[2021-07-12] MEDS ORDERED: fentaNYL (PF) 50 MCG/ML 2 ML AMP ONE (08:50)
--- NOTE | 2021-07-12 08:57 | P.HPADDEND ---
H&P Addendum H&P Addendum Date: 07/12/21 NSQIP risk calculator results reviewed. All questions addressed. We'll proceed with robotic cholecystectomy.
[2021-07-12] MEDS ORDERED: BUPIVACAIN-EPI 0.25%-1:200,000 30 ML VIAL SQ ONE (09:32)
--- NOTE | 2021-07-12 10:43 | P.OP ---
Date of Procedure: 07/12/21 Description of Procedure: SURGEON: GERALD BARCENAS MD PREOPERATIVE DIAGNOSES: 1. Symptomatic gallstone 2. Right upper quadrant abdominal pain 3. Depressive disorder 4. Asthma 5. Morbid obesity due to excess calories, BMI 65.3 POSTOPERATIVE DIAGNOSES: 1. Symptomatic gallstone 2. Right upper quadrant abdominal pain 3. Depressive disorder 4. Asthma 5. Morbid obesity due to excess calories, BMI 65.3 6. Chronic cholecystitis 7. Moderate to severe hepatomegaly OPERATION: Robotic-assisted da Bernadette Xi laparoscopic cholecystectomy, multiport with FIREFLY ESTIMATED BLOOD LOSS: 5 mL. SPECIMENS REMOVED: Gallbladder. COMPLICATIONS: None. OPERATIVE FINDINGS: 1. Moderate to severe hepatomegaly adding complexity to the case with intrahepatic gallbladder 2. Large gallstone over 1-1/2 cm INDICATIONS: The patient is a 45-year-old female who presents with symptomatic gallstones. Robotic assisted laparoscopic approach was described. Benefits and risks of the procedure including but not limited to bleeding, infection, injury to the biliary tree was described. Informed consent was obtained. DESCRIPTION OF PROCEDURE: Patient was brought to the operating room, placed in supine position. After general induction, the abdomen had been prepped and draped in standard sterile fashion. The robotic da Bernadette XI system was primed. After a timeout protocol was performed, the patient had been prepped and draped in standard sterile fashion. The patient was injected with indocyanine green. A 5 mm 0 degrees laparoscopic trocar entry was performed along the left upper quadrant. The abdomen insufflated to 15 mmHg pressure which was tolerated well. Diagnostic laparoscopy demonstrated no injury to bowel viscera or mesentery. The liver was large with moderate to severe hepatomegaly adding complexity to the case. Next, two 8 mm robotic ports were placed along the right upper abdomen. The camera 8-mm port was maintained along the epigastrium. Another 8 mm port was placed along the left upper abdominal wall after exchanging the 5 mm port. Please note that the ports were placed at least 10 to 15 cm away from the target anatomy of the gallbladder. The robot was docked along the left lateral abdomen. The patient was repositioned in reverse Trendelenburg position. Using a grasper for arm 3, a grasper for arm 4, including hook cautery for arm 1, the robotic system was docked and primed as described. Instruments were interchanged by the nurse's assistant including hook cautery, Bovie cautery and clip appliers. I had sat at the console. The gallbladder was scarred with peritoneal adhesions. Lysis of adhesions was performed to free the gallbladder from the surrounding tissues. Next attention was brought to the infundibulum and cystic structures. The infundibulum and cystic duct were dissected free from surrounding tissues. The cystic duct was i solated. FIREFLY was used to identify the cystic artery and cystic structures. A critical view of safety was obtained. Large PLASTIC clips were used throughout the entire case. Using a clip dish carrier, 2 clips were placed at the junction of the infundibulum and cystic duct. The cystic duct was divided proximal to the clips. Next, the cystic artery was cauterized. Electro-Bovie cautery was used to remove the gallbladder from the hepatic fossa. Hemostasis was checked and found to be adequate. The robot was undocked. I re-scrubbed into the case. Using a 10 mm Endo Catch bag via the left upper quadrant incision, the specimen was removed from the abdominal cavity. All pneumoperitoneum instruments were evacuated from the abdominal cavity. The incisions were reapproximated using 4-0 Monocryl in an interrupted subcuticular fashion. Fascial defects were less than 8 mm in size. Please note along the trocar sites, local anesthetic was placed as a field block prior to insertion of all instruments. Liquid glue was applied to the skin. At the end of the procedure needle, sponge, and instrument count had been verified correct by the operating room surgical technician. The patient was transferred to postanesthesia care unit in stable condition. Intraoperative films were shared with the patient's family. Plan - Discharge Summary Discharge Rx Participant: Yes New Discharge Prescriptions: New Simethicone [Gas-X] 125 mg PO AC-TID PRN #30 capsule PRN Reason: Pain Acetaminophen Tab [Tylenol Tab] 1,000 mg PO Q6HR PRN #30 tablet PRN Reason: Pain Ibuprofen [Motrin] 600 mg PO Q8HR PRN #30 tab PRN Reason: Pain Continue Albuterol Inhaler (Mhu) [Ventolin Hfa Inhaler (Mhu)] 1 - 2 puff INHALATION RT-Q6H PRN #1 inhaler PRN Reason: Shortness Of Breath Budesonide/Formoterol Fumarate [Symbicort 80-4.5 Mcg Inhaler] 2 puff INHALATION BID Cholecalciferol (Vitamin D3) [Vitamin D3 (125 MCG = 5,000 IU)] 125 mcg PO DAILY Sertraline [Zoloft] 100 mg PO DAILY busPIRone HCL [Buspar] 7.5 mg PO BID Cyanocobalamin (Vitamin B-12) [Vitamin B-12] 1,000 mcg PO DAILY Discharge Medication List Albuterol Inhaler (Mhu) [Ventolin Hfa Inhaler (Mhu)] 1 - 2 puff INHALATION RT- Q6H PRN #1 inhaler 03/06/18 [Rx] Budesonide/Formoterol Fumarate [Symbicort 80-4.5 Mcg Inhaler] 2 puff INHALATION BID 03/17/21 [History] Cholecalciferol (Vitamin D3) [Vitamin D3 (125 MCG = 5,000 IU)] 125 mcg PO DAILY 03/17/21 [History] Sertraline [Zoloft] 100 mg PO DAILY 03/17/21 [History] busPIRone HCL [Buspar] 7.5 mg PO BID 03/17/21 [History] Cyanocobalamin (Vitamin B-12) [Vitamin B-12] 1,000 mcg PO DAILY 06/03/21 [History] Acetaminophen Tab [Tylenol Tab] 1,000 mg PO Q6HR PRN #30 tablet 07/12/21 [Rx] Ibuprofen [Motrin] 600 mg PO Q8HR PRN #30 tab 07/12/21 [Rx] Simethicone [Gas-X] 125 mg PO AC-TID PRN #30 capsule 07/12/21 [Rx] [facility] up [facility]ment(s[facility] [place] [facility] - [facility] Patient Instructions/Handouts: *[facility] - Laparoscopic Cholecystectomy Discharge Instructions, *[facility] - Managing Your Pain After Surgery Without Opioids, Low Fat Diet (DC) Discharge Disposition: HOME SELF-CARE
[2021-07-12 10:50] VITALS: RESP 20
[2021-07-12] MEDS ORDERED: fentaNYL (PF) 50 MCG/ML 2 ML AMP IV ONE (11:52)
[2021-07-12] MEDS ORDERED: SIMETHICONE 40 MG/0.6 ML DROPS 2,000 MG/30 ML BOTTLE PO ONE (11:52)
[2021-07-12] MEDS ORDERED: IBUPROFEN 200 MG TAB PO ONE (11:52)
[2021-07-12 11:54] VITALS: BP 129/80
[2021-07-12 12:46] VITALS: PULSE 69
== END 2021-07-12 13:15 | disposition home or self-care (01) ==
LOC: OR 07:25
PROVIDERS: ATTEND Surgery Plastic and Reconstructive Surgery
DX: K80.20 Calculus of gallbladder without cholecystitis without obstruction (principal); F32.A Depression, unspecified; J45.909 Unspecified asthma, uncomplicated; E66.01 Morbid (severe) obesity due to excess calories; Z68.44 Body mass index [BMI] 60.0-69.9, adult; K81.1 Chronic cholecystitis; R16.0 Hepatomegaly, not elsewhere classified
CPT/HCPCS: 47562; S2900; 81025; 88304